=== PATIENT | female | born 1970 | race Caucasian/White ===

== ENCOUNTER 2024-02-01 07:41 | Outpatient (CLI) | payer BC | END 2024-02-01 23:59 | disposition home or self-care (01) | LOC: MRI 07:41 | PROVIDERS: ATTEND Podiatrist Foot & Ankle Surgery | DX: M65.872 Other synovitis and tenosynovitis, left ankle and foot (principal); M25.741 Osteophyte, right hand; M25.472 Effusion, left ankle; M24.572 Contracture, left ankle; M24.571 Contracture, right ankle; M21.40 Flat foot [pes planus] (acquired), unspecified foot; M65.871 Other synovitis and tenosynovitis, right ankle and foot; M76.62 Achilles tendinitis, left leg; M76.61 Achilles tendinitis, right leg; M79.672 Pain in left foot; M79.671 Pain in right foot | CPT/HCPCS: 73721 ==